=== PATIENT | male | born 1940 | race Two or more races ===

== ENCOUNTER 2021-09-15 07:39 | Inpatient (IN) | payer OTHER ==
[~2021-09-15] VITALS: Ht 172.7 cm; Wt 63.5 kg
--- NOTE | 2021-09-15 07:58 | NUR ---
PACIENTE REFIERE [facility]GO [facility].
[2021-09-15] MEDS ORDERED: LANTUS SOL100 UNIT/1 (08:01)
[2021-09-15] MEDS ORDERED: PLAVIX75 MG PO (08:02)
--- NOTE | 2021-09-15 11:15 | NUR ---
SE REALIZAN MUESTRAS DE CARMELA POR ORDEN MEDICA, ADMINISTRACION DE MEDICAMENTOS, PACIENTE ENTREGA MUESTRA DE ORINA Y SE MANTIENE EN ESPERA DE CONSULTA.
--- NOTE | 2021-09-15 17:11 | NUR ---
SE RECIBE PTE MASCULINO DORMIDO, CON BARANDAS ELEVADAS EN COMPANIA DE FAMILIAR RECIBIENDO IV FLUID 0.9 BAJANDO A 100 EN BRAZO DERECHO, JOSE DE EDEMA Y ERITEMA. PENDIENTE CONSULTA CON DR. PRICE. SE MANTIENE EN OBSERVACION ALEYDA.
== END 2021-09-26 14:44 | disposition home or self-care (01) | DRG 240 ==
LOC: ER 07:39 → MEDJ 20:10
PROVIDERS: Surgery; ADMIT Internal Medicine; ATTEND Internal Medicine
PROC: B24BZZZ Ultrasonography of Heart with Aorta (ICD-10-PCS; 2021-09-18)
PROC: 0Y6G0ZZ Detachment at Left Knee Region, Open Approach (ICD-10-PCS; principal; 2021-09-21 17:45)
DX: I83.229 Varicose veins of left lower extremity with both ulcer of unspecified site and inflammation (principal); M86.172 Other acute osteomyelitis, left ankle and foot; N17.8 Other acute kidney failure; L97.529 Non-pressure chronic ulcer of other part of left foot with unspecified severity; L08.9 Local infection of the skin and subcutaneous tissue, unspecified; B95.2 Enterococcus as the cause of diseases classified elsewhere; B96.89 Other specified bacterial agents as the cause of diseases classified elsewhere; I12.9 Hypertensive chronic kidney disease with stage 1 through stage 4 chronic kidney disease, or unspecified chronic kidney disease; E11.22 Type 2 diabetes mellitus with diabetic chronic kidney disease; D64.9 Anemia, unspecified; N18.30 Chronic kidney disease, stage 3 unspecified; Z20.822 Contact with and (suspected) exposure to COVID-19; E11.69 Type 2 diabetes mellitus with other specified complication; Z79.4 Long term (current) use of insulin

== ENCOUNTER 2021-10-15 10:07 | Emergency (ER) | payer OTHER ==
[~2021-10-15] VITALS: Ht 172.7 cm; Wt 65.8 kg
[~2021-10-15 10:07] MED LIST: LANTUS SOL100 UNIT/1; PLAVIX75 MG PO
[2021-10-15] MEDS ORDERED: IRBESARTAN75 MG PO (10:38)
== END 2021-10-15 14:39 | disposition home or self-care (01) ==
LOC: ER 10:07
DX: Z48.02 Encounter for removal of sutures (principal); E11.9 Type 2 diabetes mellitus without complications; Z79.4 Long term (current) use of insulin; I10 Essential (primary) hypertension; Z88.6 Allergy status to analgesic agent